=== PATIENT | male | born 1985 | race Caucasian/White ===

== ENCOUNTER 2024-09-22 19:02 | Emergency (ER) | payer OTHER, SELFPAY ==
[2024-09-22 19:04] VITALS: BP 125/91
[2024-09-22 19:52] VITALS: BP 133/97
--- NOTE | 2024-09-22 20:31 | ED.GENMED ---
History of Present Illness
General
Chief Complaint: Crisis Evaluation
Time Seen by Provider: 09/22/24 19:48
History of Present Illness
History of Present Illness:
38-year-old male with history of PTSD presenting to the emergency department for anxiety and depression. Patient arrives for crisis. On my evaluation, patient is not very forthcoming with information, notes that he is not ready to talk about it.
He does deny any suicidal or homicidal ideations. He does note that he has been going through a lot. He arrives with his spouse, reporting that he is seeking resources. At this time he denies any medical complaints such as chest pain, difficulty
breathing, abdominal pain, fever.
Phy Exam
Physical Exam
Physical Exam:
General: Well-appearing, no clinical signs of dehydration, nontoxic and in no acute distress
HEENT: protecting airway
Neck: appears supple
CV: Normal heart rate
Resp: No accessory muscle use, no increased work of breathing
Abd: No distention
Extremities: No deformities, no swelling
Neuro: alert, no focal neurologic deficit
: deferred
Rectal: deferred
Psych: Flat affect
Skin: Intact
Course
Orders/Labs/Results
Orders:
Orders
09/22/24 19:17
Crisis Consult Urgent
Reason for Consult: depression, anxiety, PTSD
Vital Signs
Initial and Last Documented VS:
Initial Vital Signs
Temp Pulse Resp BP Pulse Ox
98.1 F 83 16 125/91 100
09/22/24 19:04 09/22/24 19:04 09/22/24 19:04 09/22/24 19:04 09/22/24 19:04
Last Documented Vital Signs
Temp Pulse Resp BP Pulse Ox
98.1 F 74 18 133/97 98
09/22/24 19:04 09/22/24 19:52 09/22/24 19:52 09/22/24 19:52 09/22/24 19:52
MDM/Problems Addressed
MDM/Problems Addressed:
38-year-old male with history of PTSD presenting for anxiety and depression. Vital signs are normal.
On exam, patient is in no acute distress, however very flat affect. He is requesting resources for his anxiety and depression, however is not very forthcoming with the symptoms, however does deny any suicidal ideations. Crisis was to bedside for
evaluation, however patient noted he was not ready to talk to anybody. Resources were provided for outpatient. On my assessment, patient again reports that he is not ready to talk to anybody, declining formal crisis evaluation. He would like to
proceed with outpatient resources. Explained in detail to patient and spouse that if symptoms at any point are worsening with development of suicidal ideations that he is to return immediately for reassessment. At this time he does not appear to
be a present threat to himself or others. Feel stable for discharge. Return precautions discussed
*Critical Care Note
Total Time (30-74mins, 75-104mins- exclusive of procedures): Not Applicable
ED Attending Note
-
Portions of this chart may have been created with voice recognition software.� Occasional wrong word or��sound alike� substitutions may have occurred due to the inherent limitations of voice recognition software.
Discharge Plan
Interventions
Interventions:
*Risk Screen - Suicide Last Done: 09/22/24 19:04
*General Assessment Last Done: 09/22/24 19:52
*Neglect/Abuse Screening Last Done: 09/22/24 19:52
*ED- Fall Risk Assessment Last Done: 09/22/24 19:52
*ED COVID-19 Vaccine History Last Done: 09/22/24 19:52
ED-Psychological Assessment Last Done: 09/22/24 19:53
Discharge Date and Time
Print Language: [id number]
== END 2024-09-22 20:56 | disposition home or self-care (01) ==
LOC: EMR 19:02
PROVIDERS: EMERGENCY PHYSICIAN Student in an Organized Health Care Education/Training Program
DX: F32.A Depression, unspecified (principal); F41.9 Anxiety disorder, unspecified; F43.10 Post-traumatic stress disorder, unspecified; R45.89 Other symptoms and signs involving emotional state
CPT/HCPCS: 99281